=== PATIENT | male | born 1995 | race Asian ===

== ENCOUNTER 2021-12-06 01:51 | Emergency (ER) | payer MEDICAID, OTHER ==
[~2021-12-06] VITALS: Ht 172.7 cm; Wt 72.6 kg
[2021-12-06 02:38] VITALS: BP_SYST 146
--- NOTE | 2021-12-06 02:59 | NUR ---
PT AMBULATES TO BED 5 WITH STEADY GAIT. NO S/S OF DISTRESS NOTED.
[2021-12-06 03:19] LABS: BILIRUBIN,URINE NEGATIVE (NEGATIVE); BLOOD, URINE 3+ (NEGATIVE); CLARITY/URINE CLOUDY (CLEAR); COLOR,URINE RED (YELLOW); GLUCOSE,URINE NEGATIVE (NEGATIVE); KETONES,URINE NEGATIVE (NEGATIVE); LEUKOCYTE ESTERASE ,URINE 3+ (NEGATIVE); NITRITE, URINE NEGATIVE (NEGATIVE); PH,URINE 5.5 (5.0-8.0); PROTEIN URINE 1+ (NEGATIVE); UROBILINOGEN,URINE 0.2 (0.2-1.0)
--- NOTE | 2021-12-06 03:24 | NUR ---
Pt to bed 5 from [facility]. Ambulates with strong steady gait. Pt c/o hematuria, polyuria, dysuria since the morning of 12/05/2021. Urine in lab at this time. normal skin color for ethnicity. no fever at this time. pain 3/10 burning in nature only during urination. Pt denies abdominal pain
[2021-12-06 03:36] LABS: BACTERIA,URINE MANY /HPF (None Seen); RBC,URINE >100 /HPF (0-3); WBC,URINE >100 /HPF (0-3)
[2021-12-06 03:41] LABS: BASOPHILS # (AUTO) 0.1 K/uL (0.0-0.2); BASOPHILS % (AUTO) 0.3 % (0.0-2.0); EOSINOPHILS # (AUTO) 0.1 K/uL (0.0-0.4); EOSINOPHILS % (AUTO) 0.6 % (0.0-4.0); HEMATOCRIT 46.8 % (36-54); HEMOGLOBIN 16.6 g/dL (14.0-18.0); LYMPHOCYTES # (AUTO) 2.2 K/uL (1.0-5.5); LYMPHOCYTES % (AUTO) 12.7 % (20.5-51.5); MEAN CORPUSCULAR HEMOGLOBIN 30 pg (27-31); MEAN CORPUSCULAR HGB CONC 36 % (32-36); MEAN CORPUSCULAR VOLUME 85 fL (79.0-98.0); MONOCYTES # (AUTO) 1.2 K/uL (0.0-1.0); MONOCYTES % (AUTO) 6.7 % (1.7-9.3); NEUTROPHILS # (AUTO) 13.7 K/uL (1.8-7.7); NEUTROPHILS % (AUTO) 79.7 % (40.0-70.0); PLATELET COUNT (AUTO) 245 K/uL (130-430); RED CELL DISTRIBUTION WIDTH 13.2 % (9.0-15.0); WHITE BLOOD COUNT (AUTO) 17.2 K/uL (4.8-10.8)
[2021-12-06 03:44] LABS: CALCIUM 8.9 mg/dL (8.4-11.0); CREATININE 1.09 mg/dL (0.55-1.30); POTASSIUM 3.9 mmol/L (3.5-5.1)
[2021-12-06 03:50] LABS: ALBUMIN 3.9 g/dL (3.4-4.8); TOTAL BILIRUBIN 0.8 mg/dL (0.0-1.0)
--- NOTE | 2021-12-06 04:00 | NUR ---
MD at bedside at this time updating pt on plan of care and assessing patient.
[2021-12-06] MEDS ORDERED: NACL 0.9% 1,000 ML IV ONE (04:15)
[2021-12-06] MEDS ORDERED: PHEN-801 PO (04:19)
[2021-12-06] MEDS ORDERED: CIPR-260 PO (04:19)
[2021-12-06] MEDS ORDERED: cefTRIAXone 1 GM in D5W 50 ML IV ONE (04:30)
[2021-12-06] MEDS ORDERED: cefTRIAXone 1 GM VIAL ONE (04:33)
[2021-12-06 05:39] VITALS: BP_SYST 127
--- NOTE | 2021-12-06 05:40 | NUR ---
Patient given written and verbal discharge instructions and verbalizes understanding. ER MD discussed with patient the results and treatment provided. Patient in stable condition. ID arm band removed. IV catheter removed intact and dressing applied, no active bleeding. Rx of pyridium and ciprofloxacin given. Patient educated on pain management and to follow up with PMD. Pain Scale 0/10. Opportunity for questions provided and answered. Medication side effect fact sheet provided.
== END 2021-12-06 05:40 | disposition home or self-care (01) ==
LOC: SED 01:51
DX: N30.90 Cystitis, unspecified without hematuria (principal); R30.0 Dysuria
CPT/HCPCS: 36415; 80053; 81000; 85025; 87086; 96365; 99284; J0696